=== PATIENT | male | born 1960 | race Caucasian/White ===

== ENCOUNTER 2016-12-10 08:23 | Day surgery (SDC) | payer MEDICAID, OTHER ==
[~2016-12-10] VITALS: Ht 182.9 cm; Wt 113.4 kg
[2016-12-10] VITALS (12 sets, daily range): BP systolic 107–126; BP diastolic 74–89
--- NOTE | 2016-12-10 06:50 | Pre-Procedure Note/Attestation ---
Pre-Procedure Note/Attestation Complete Prior to Procedure Planned Procedure: right Procedure Narrative: rt knee scope, partial medial meniscectomy chondroplasty and resection of loose fragment Indications for Procedure Pre-Operative Diagnosis: rt knee medial meniscus tear Attestation I attest that I discussed the nature of the procedure; its benefits; risks and complications; and alternatives (and the risks and benefits of such alternatives ), prior to the procedure, with the patient (or the patient's legal claim service representative). I attest that, if there was a reasonable possibility of needing a blood transfusion, the patient (or the patient's legal claim service representative) was given the [facility] standardized written summary, pursuant to the [place] Blood Safety Act ([place] Health and Safety Code # 1645, as amended). I attest that I re-evaluated the patient just prior to the surgery and that there has been no change in the patient's H&P, except as documented below: NONE AMELIE WOLF December 10, 2016 06:50
[~2016-12-10 08:23] MED LIST: ceFAZolin 1gm/50ml Premix 50 ML IV ONE; celeBREX 200mg Cap **SURGERY PATIENTS ONLY ORAL ONE; oxyCONTIN 20mg tab ORAL ONE
[2016-12-10] MEDS ORDERED: ATORVASTATIN CA20 MG ORAL (09:06)
[2016-12-10] MEDS ORDERED: LAMOTRIGINE25 M5 PO (09:06)
[2016-12-10] MEDS ORDERED: ENALAPRIL MALEA20 MG ORAL (09:06)
[2016-12-10] MEDS ORDERED: NORVASC10 MG ORAL (09:06)
[2016-12-10] MEDS ORDERED: OXYCODONE-ACET1 EAC3 ORAL (09:06)
[2016-12-10] MEDS ORDERED: Ropivacaine 5mg/ml Vial 20ml INJ ONE (10:03)
[2016-12-10] MEDS ORDERED: LR 1000ml 1,000 ML IVLG SCH (10:07)
--- NOTE | 2016-12-10 10:07 | Anethesia Preoperative Eval ---
Anesthesia Pre-op PMH/ROS General Date of Evaluation: December 10, 2016 Time of Evaluation: 10:18 Anesthesiologist: Michelle ASA Score: ASA 3 Mallampati Score Class I : Soft palate, uvula, fauces, pillars visible Class II: Soft palate, uvula, fauces visible Class III: Soft palate, base of uvula visible Class IV: Only hard plate visible Mallampati Classification: Class II Surgeon: Chelsie Diagnosis: R Knee Pain Surgical Procedure: R Knee Arthroscopy Anesthesia History: none Family History: no anesthesia problems Allergies: Coded Allergies: No Known Allergies (Unverified , 12/08/16) Past Medical History Cardiovascular: Reports: HTN, other - HL Musculoskeletal/Integumentary: Reports: OA Other: obesity - BMI 33 PSxH Narrative: L knee, R Ankle SX Anesthesia Pre-op Phys. Exam Physician Exam Last Vital Signs Date Time Temp Pulse Resp B/P Pulse Ox O2 Delivery O2 Flow Rate FiO2 12/10/16 08:45 98.0 74 18 123/82 96 Room Air Constitutional: NAD Neurologic: CN 2-12 intact Cardiovascular: RRR Respiratory: CTA Gastrointestinal: S/NT/ND Airway Exam Mallampati Score: Class II MO: full ROM: full Teeth: intact Anesthesia Pre-op A/P Risk Assessment & Plan Assessment: ASA 3 Plan: GA, BIS Status Change Before Surgery: No Pre-Antibiotics Dru Grams Ancef IV Given Within 1 Hr of Incision: Yes Time Given: 10:31 Riccardo Martinez MD December 10, 2016 10:07
--- NOTE | 2016-12-10 10:09 | Immediate Post-Op Evaluation ---
Immediate Post-Op Evalulation Immediate Post-Op Evalulation Procedure: R Knee Arthroscopy Date of Evaluation: December 10, 2016 Time of Evaluation: 11:55 Blood Products: 0 Estimated Blood Loss: 15 Urinary Output: 0 Blood Pressure Systolic: 107 Blood Pressure Diastolic: 74 Pulse Rate: 80 Respiratory Rate: 16 O2 Sat by Pulse Oximetry: 99 Temperature (Fahrenheit): 97.4 Pain Score (1-10): 2 Nausea: No Vomiting: No Complications 0 Patient Status: awake, reacts, patent, extubated, none Hydration Status: adequate Dru Grams Ancef IV Given Within 1 Hr of Incision: Yes Time Given: 10:31 Riccardo Martinez MD December 10, 2016 10:09
--- NOTE | 2016-12-10 10:13 | 48 Hour Post Anesthesia Eval ---
Post Anesthesia Evaluation Procedure: R Knee Arthroscopy Date of Evaluation: December 10, 2016 Time of Evaluation: 14:12 Blood Pressure Systolic: 132 0: 86 Pulse Rate: 78 Respiratory Rate: 18 Temperature (Fahrenheit): 97.4 O2 Sat by Pulse Oximetry: 99 Airway: patent Nausea: No Vomiting: No Pain Intensity: 2 Hydration Status: adequate Cardiopulmonary Status: Stable Mental Status/LOC: patient returned to baseline Follow-up Care/Observations: 0 Post-Anesthesia Complications: 0 Follow-up care needed: ready to discharge Riccardo Martinez MD December 10, 2016 10:13
[2016-12-10] MEDS ORDERED: Norco 5mg/325mg tab ORAL PRN ×2 (10:15→10:45)
[2016-12-10] MEDS ORDERED: Ketorolac 60mg Inj IV PRN (10:15)
[2016-12-10] MEDS ORDERED: Oxycodone/Acetaminophen 5-325 ORAL PRN (10:15)
[2016-12-10] MEDS ORDERED: Atropine Inj 1mg/10ml Syr IV PRN (10:15)
[2016-12-10] MEDS ORDERED: Norco 7.5mg/325mg tab ORAL PRN (10:15)
[2016-12-10] MEDS ORDERED: Ketorolac 30mg Inj IV PRN (10:15)
[2016-12-10] MEDS ORDERED: Metoclopramide 10mg/2ml Inj IVP PRN (10:15)
[2016-12-10] MEDS ORDERED: DiphenhydrAMINE 50mg/ml Inj IVP PRN (10:15)
[2016-12-10] MEDS ORDERED: Hydromorphone 0.5mg/0.5ml inj IVP PRN (10:15)
[2016-12-10] MEDS ORDERED: Meperidine 25mg/0.5ml Inj IV PRN (10:15)
[2016-12-10] MEDS ORDERED: Midazolam 2mg/2ml Inj IVP PRN (10:15)
[2016-12-10] MEDS ORDERED: LORazepam Inj 2mg/ml 1ml IV PRN (10:15)
[2016-12-10] MEDS ORDERED: fentaNYL 100 mcg/2 mL IV PRN (10:15)
[2016-12-10] MEDS ORDERED: Lidocaine 1% MPF 10mg/ml 5ml ONE (10:20)
[2016-12-10] MEDS ORDERED: LR 1000ml ONE (10:20)
[2016-12-10] MEDS ORDERED: Propofol 10mg/ml 20ml IV ONE (10:20)
[2016-12-10] MEDS ORDERED: Dexamethasone 4mg/ml vial ONE (10:20)
[2016-12-10] MEDS ORDERED: Sterile Water Irrig 1000ml IRRIG ONE (10:20)
[2016-12-10] MEDS ORDERED: Alfentanil 2ml Inj ONE (10:20)
[2016-12-10] MEDS ORDERED: HYDROmorphone 1mg/ml Carpuject SUBQ PRN (10:45)
[2016-12-10] MEDS ORDERED: Tylenol #3 tab (300mg/30mg) ORAL PRN (10:45)
[2016-12-10] MEDS ORDERED: D5 1/2NS 1,000 ML IV SCH (10:45)
[2016-12-10] MEDS ORDERED: NS Irrig 4000ml IRRIG ONE (10:58)
--- NOTE | 2016-12-10 11:27 | Diagnostic Imaging Report ---
Indication: Cough Technique: Single portable AP view of the chest. Findings: Comparison: None. Inspiratory effort is suboptimal. Cardiac silhouette partially obscured, may be enlarged. The bones and extra pulmonary soft tissues, remainder of the cardiomediastinal silhouette, pulmonary vasculature, visualized portions of pulmonary parenchyma and pleural surfaces are unremarkable. IMPRESSION: No evidence of acute cardiopulmonary disease, limited as described Cardiomegaly not excludable.
--- NOTE | 2016-12-10 11:38 | Brief Operative Note ---
Immediate Post Operative Note Operative Note Chief Complaint: rt knee pain Pre-op Diagnosis: rt knee medial meniscus tear Procedure: rt knee scope, medial meniscectomy, chondroplasty, resection of loose fragment, resection of medial plica Post-op Diagnosis: same as pre-op Findings: consistent w/pre-op dx studies Surgeon: MD Chelsie Dog Races Manager: alexsander Donahue Anesthesiologist: md Brandon Anesthesia: general Specimen: none Complications: none Condition: stable Estimated Blood Loss: minimal Drains: none Implant(s) used?: No FRANCIS DONAHUE December 10, 2016 11:38
--- NOTE | 2016-12-10 22:11 | Operative Note - Dictated ---
DATE OF OPERATION: 12/10/2016 SURGERY DATE: 12/10/2016. PREOP DX: 1. Right knee possible medial meniscus tear. 2. Right knee possible loose fragment. POSTOP DX: 1. 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 2. Right knee complex degenerative tear of the posterior horn and body of the medial meniscus involving 30% of the medial meniscus. 3. Right knee loose fragment of posterior medial aspect of the knee measuring 5 to 7 mm. 4. Right knee thickened medial plica shelf rubbing at the medial femoral condyle. PROCEDURE: 1. Right knee arthroscopy and extensive intra-articular shaving. 2. Right knee resection of large thickened medial plica shelf that was rubbing at the medial femoral condyle. 3. Right knee partial medial meniscectomy involving 30% of the posterior horn and body of the medial meniscus. 4. Right knee resection of multiple loose fragment measuring 5 to 7 mm from posterior medial aspect of the knee. SURGEON: Paco Holguin M.D. INSPECTOR SCREEN PRINTING: Marjorie Donahue PA-C. ANESTHESIOLOGIST: Riccardo Martinez M.D. ANESTHESIA: LMA anesthesia. TOURNIQUET TIME: 35 minutes. EBL: Minimal. COMPLICATIONS: None. SURGICAL INDICATION: Patient is a 56-year-old male who sustained the above injury to his Knee. The patient was treated non-operative initially, but this did not alleviate the patients symptoms. Therefore, after discussing all non-surgical and surgical options, and discussing all foreseeable risk and benefits of surgery, the patient opted for surgical treatment as described above. PATIENT POSITIONING: Patient was brought to the operating room table and placed supine. All pressure points were well padded. General Anesthesia was induced and a well padded tourniquet was placed on the thigh. The lateral post was placed and positioned to allow for opening of the medial compartment of the knee without placing pressure over the fibular head. Patients entire leg was prepped and draped in the usual sterile fashion. Time out was performed and preop abx was given and after exsanguinating the lower extremity, the tourniquet was inflated to 275 mmHg. EXAMINATION OF THE KNEE UNDER ANESTHESIA: Before prepping and draping the knee and while the patient was relaxed under general anesthesia, the knee was examined for ROM, and anterior and posterior, medial and lateral, posterolateral, and posteromedial instability. Pivot shift testing was performed. There was no evidence of loss of motion or instability and the pivot shift testing was negative. PORTAL PLACEMENT: The lateral portal was placed with the knee flexed to 90 degrees at the level of inferior border of the patella in line with the lateral border of the patella. A cm skin incision was made with an eleven blade, and using a blunt obturator, the capsule was gently penetrated. Sterile saline solution was then infused inside the knee with the aid of a pump set at 35 mm mercury pressure. Under direct visualization, placement of the medial portal was preliminary judged using a spinal needle, and it was subsequently established using the same technique as the lateral portal. Care was given not to injure the cutaneous branches of the medial Saphenous nerve or the subcutaneous veins. DIAGNOSTIC ARTHROSCOPY: The suprapatellar patellar pouch was visualized. There was no evidence of scar tissue or loose fragments. The medial and lateral patellar facets and trochlear groove articular cartilage was visualized. There was some chondral damage over the lateral patellar facet measuring 1.5 x 1 cm. The trochlear however was completely intact. The medial plica shelf and the corresponding medial femoral condyle articular cartilage were visualized. There was a large thickened medial plica shelf that was rubbing at the medial femoral condyle with a kissing lesion over the medial femoral condyle. The lateral gutter and the posterolateral corner of the knee were visualized. There were no loose bodies, and the popliteus tendon and other structures of the posterolateral corner of the knee were intact intra-articularly. At this point, the knee was placed in the figure of four position and the lateral compartment was entered. The lateral femoral condyle, lateral tibial plateau, and the anterior, body, and the posterior horn of the lateral meniscus were visualized and probed. The articular surfaces were intact and devoid of articular cartilage damage. The lateral meniscus was completely intact both on its undersurface and on the top. The knee was then placed at 90 degree and the ACL and PCL were visualized and probed. The ACL was completely intact on visualization and probing, and it had excellent tension. The PCL was completely intact on visualization and probing and it had excellent tension. The medial compartment was then entered and the medial femoral condyle, medial tibial plateau, and the anterior, body, and the posterior horn of the medial meniscus were visualized and probed. The articular surfaces were intact and devoid of articular cartilage damage. There was a complex tear of the posterior horn and body of the medial meniscus involving 30% of the medial meniscus. The medial gutter was visualized. There was no evidence of loose fragment although posterior medially, the scope was placed through the ACL and PCL and posterior medial aspect of the knee up to 5 to 7 mm loose fragments. The scope was then brought back to the patella femoral compartment. OPERATIVE ARTHROSCOPY: At this point, all loose debris and fragments were removed with the use of suction motorized shaver. Specific attention was given to assure all visible loose fragments were irrigated out of the knee joint with pump inflow and cannula outflow system. For removal of loose body, the loose fragments were identified and visualized. Using combination of the shaver, suction, and graspers, these loose fragments were removed. These loose fragments measured approximately 5 to 7 mm. All debris left behind was removed with combination of katina and graspers. For patella femoral chondroplasty, the frayed articular cartilage of the undersurface of the patella and the trochlear groove were debrided using a motorized shaver. Suction was used to pull in the loose fragments and flaps of the cartilage and to minimize damage to the intact and well attached portion of the cartilage. This allowed for a smooth surface for the articular cartilage gliding. For medial plica resection, attention was given to the thickened medial plica shelf. Using combination of katina and baskets, the thickened portion of synovectomy was removed and synovectomy was performed in this fashion. Chondroplasty of the "kissing lesion" of the medial femoral condyle was performed to create a smooth surface. The knee was placed through ROM and there was no contact between the thickened plica shelf and the medial femoral condyle. For medial meniscectomy, at this point, attention was given to the medial meniscus. Using combination of baskets and katina, the torn portion of the medial meniscus was removed. Attention was given to remove all displaced and unstable portion of the medial meniscus while maintaining as much of the functional portion of the meniscus as possible. Approximately, 30% of the posterior horn and body of the medial meniscus was removed in this fashion. The transition between the meniscectomy portion and intact portion of the meniscus was smoothed out with combination of small baskets and katina. Excellent transition zone was obtained in this fashion. CONDITION AT DISCHARGE FROM OPERATING ROOM: The knee was irrigated with copious amount of normal saline at the end of the procedure. The scope was removed and the water was drained. The skin edges were re-approximated and sterile dressing was applied. All lap count and instrument counts were correct. Patient tolerated the procedure well without complications and was taken to the recovery room in stable conditions. Paco Holguin M.D. DR: TANESHA JOB#: [id number] CC: Paco Holguin M.D.; Fax#: [phone]
== END 2016-12-10 14:20 | disposition home or self-care (01) ==
LOC: SUR 08:23
DX: S83.231A Complex tear of medial meniscus, current injury, right knee, initial encounter (principal); X58.XXXA Exposure to other specified factors, initial encounter; Y92.89 Other specified places as the place of occurrence of the external cause; Y99.9 Unspecified external cause status; M94.261 Chondromalacia, right knee; M23.41 Loose body in knee, right knee; M67.51 Plica syndrome, right knee; M17.9 Osteoarthritis of knee, unspecified; E78.2 Mixed hyperlipidemia; N40.1 Benign prostatic hyperplasia with lower urinary tract symptoms; N13.8 Other obstructive and reflux uropathy; I10 Essential (primary) hypertension; F31.9 Bipolar disorder, unspecified; K76.89 Other specified diseases of liver; M72.2 Plantar fascial fibromatosis; K80.80 Other cholelithiasis without obstruction; Z87.442 Personal history of urinary calculi
CPT/HCPCS: 29881; 71010; J0690; J1100; J2250; J2405; J2704; J2795; J3490; J7120; 94003; 94150